=== PATIENT | male | born 1950 | race Caucasian/White ===

== ENCOUNTER 2021-07-11 11:13 | Day surgery (SDC) | payer MEDICARE ==
[~2021-07-11 11:13] MED LIST: Lidocaine 1%/Sod Bicarbonate in NS 8.4% 1 ML Syringe IDERM PRN; Sodium Chloride 0.9% 10 ML Syringe FLUSH PRN; Sodium Chloride 0.9% 10 ML Syringe FLUSH SCH
[2021-07-11] MEDS ORDERED: Propofol 200 MG/20 ML SDV ONE (11:25)
[2021-07-11] MEDS ORDERED: fentaNYL 250 MCG/5 ML SDV ONE (11:26)
[2021-07-11] MEDS ORDERED: Midazolam 1 MG/ML 2 ML SDV ONE (11:26)
[2021-07-11] MEDS ORDERED: Rocuronium 50 MG/5 ML Vial ONE ×2 (11:28→14:24)
[2021-07-11] MEDS ORDERED: Lidocaine 1% 4 ML ONE (11:31)
[2021-07-11] MEDS: Lactated Ringers 1,000 ML IV SCH ×2 (11:35→12:36)
[2021-07-11] MEDS ORDERED: fentaNYL 100 MCG/2 ML SDV IVPUSH PRN ×2 (13:29→16:20)
[2021-07-11] MEDS ORDERED: HYDROmorphone 0.5 MG/0.5 ML Syringe IVPUSH PRN ×2 (13:29→16:20)
[2021-07-11] MEDS ORDERED: Ondansetron 4 MG/2 ML SDV IVPUSH PRN ×2 (13:29→16:20)
[2021-07-11] MEDS ORDERED: Lidocaine 1% with EPINEPHrine 1:100,000 10 ML MDV ONE (13:35)
[2021-07-11] MEDS ORDERED: Bupivacaine 0.5% 30 ML SDV ONE (13:35)
[2021-07-11] MEDS ORDERED: ceFAZolin 1 GM Vial ONE (13:59)
[2021-07-11] MEDS ORDERED: ePHEDrine 50 MG/ML SDV ONE (14:03)
[2021-07-11] MEDS ORDERED: Albuterol 0.083% 2.5 MG/3 ML Neb Soln ONE (14:20)
[2021-07-11] MEDS ORDERED: Dexamethasone 4 MG/ML 5 ML MDV ONE (14:27)
[2021-07-11] MEDS ORDERED: Ketorolac 30 MG/ML SDV ONE (14:27)
[2021-07-11] MEDS ORDERED: Ondansetron 4 MG/2 ML SDV ONE ×2 (14:27→14:29)
[2021-07-11] MEDS ORDERED: diphenhydrAMINE 50 MG/ML SDV ONE ×2 (14:28)
[2021-07-11] MEDS ORDERED: Lactated Ringers 1,000 ML ONE ×2 (14:45→15:53)
[2021-07-11] MEDS ORDERED: fentaNYL 100 MCG/2 ML SDV ONE (16:01)
== END 2021-07-11 19:37 | disposition home or self-care (01) ==
LOC: JD.SDS 11:13
PROVIDERS: ATTEND Surgery
DX: K40.90 Unilateral inguinal hernia, without obstruction or gangrene, not specified as recurrent (principal); F17.210 Nicotine dependence, cigarettes, uncomplicated; Z88.0 Allergy status to penicillin; Z98.890 Other specified postprocedural states; Z90.49 Acquired absence of other specified parts of digestive tract
CPT/HCPCS: 49650; J0690; J1100; J1200; J1885; J2250; J2370; J2405; J2704; J2710; J3010; J3490; J7120; 00840; 99100; C1781